=== PATIENT | female | born 2000 | race Caucasian/White ===

== ENCOUNTER 2018-09-28 15:25 | Emergency (ER) | payer OTHER ==
[2018-09-28] MEDS ORDERED: Lidocaine 1% w/Epinephrine 1:100K 20 ML VIAL ONE (15:47)
[2018-09-28] MEDS ORDERED: Bacitracin Zinc 1 Packet ONE (16:16)
== END 2018-09-28 16:19 | disposition home or self-care (01) ==
LOC: SCSER 15:25
DX: S90.852A Superficial foreign body, left foot, initial encounter (principal); W22.8XXA Striking against or struck by other objects, initial encounter
CPT/HCPCS: 10120; J2001